=== PATIENT | male | born 1950 | race Caucasian/White ===

== ENCOUNTER 2022-12-27 02:28 | Emergency (ER) | payer OTHER ==
[~2022-12-27] VITALS: Ht 170.2 cm; Wt 76.2 kg
--- NOTE | 2022-12-27 02:40 | NUR ---
BIBPA FROM SNF FOR HYPERGLYCEMIA LAST BS 300+ PER EMS. PLACED ON BED COMFORTABLY. V/S TAKEN AND RECORDED.
--- NOTE | 2022-12-27 02:42 | NUR ---
BS 376
[2022-12-27] MEDS ORDERED: IV NS 0.9% 1,000 ML IV PRN ×2 (03:00)
[2022-12-27 03:02] LABS: BASOPHILS % (AUTO) 0.4 % (0.0-2.0); EOSINOPHILS % (AUTO) 2.6 % (0.0-6.0); HEMATOCRIT 45 % (39-51); HEMOGLOBIN 15.4 g/dL (13.5-17.5); LYMPHOCYTES # (AUTO) 1.6 K/uL (0.8-4.8); LYMPHOCYTES % (AUTO) 30.2 % (20.0-44.0); MEAN CORPUSCULAR HGB CONC 34 g/dl (31.0-36.0); MEAN CORPUSCULAR VOLUME 93 fL (80-96); MONOCYTES # (AUTO) 0.4 K/uL (0.1-1.30); MONOCYTES % (AUTO) 8.5 % (2.0-12.0); NEUTROPHILS % (AUTO) 58.3 % (43.0-81.0); PLATELET COUNT (AUTO) 184 K/uL (150-450); RED BLOOD CELL COUNT(AUTO) 4.89 MIL/uL (4.5-6.0); WHITE BLOOD COUNT (AUTO) 5.2 K/uL (4.3-11.0)
[2022-12-27 03:19] LABS: ABG BASE EXCESS 0.4 mmol/L; ABG PCO2 33.1 mmHg (35.0-45.0); ABG PH 7.468 (7.350-7.450); ABG PO2 80.1 mmHg (75.0-100.0); COHb 1.1 % (0.5-1.5); MetHb 0.2 % (0.0-1.5); O2Hb 95.5 % (94.0-97.0); SITE, ABG Right Radial; VENT MODE, BG ROOM AIR
[2022-12-27 03:33] LABS: CALCIUM, SERUM 9.3 mg/dL (8.5-10.1); CARBON DIOXIDE 30 mmol/L (21-32); CHLORIDE 100 mmol/L (98-107); CREATININE 1.1 mg/dL (0.6-1.3); POTASSIUM 3.6 mmol/L (3.5-5.1); SODIUM SERUM 135 mmol/L (136-145); UREA NITROGEN, BLOOD 10 mg/dL (7-18)
[2022-12-27 03:37] LABS: GLUCOSE 388 mg/dL (74-106)
--- NOTE | 2022-12-27 04:19 | NUR ---
URINE SPECIMEN SENT TO LAB
[2022-12-27] MEDS ORDERED: INSULIN REGULAR, HUMAN 100 UNIT/ML 10 ML VIAL IV ONE (04:30)
[2022-12-27] MEDS ORDERED: INSULIN REGULAR, HUMAN 100 UNIT/ML 10 ML VIAL ONE (04:55)
[2022-12-27 05:37] LABS: BILIRUBIN,URINE NEGATIVE (NEGATIVE); COLOR,URINE YELLOW (YELLOW); LEUKOCYTE ESTERASE ,URINE NEGATIVE (NEGATIVE); NITRITE, URINE NEGATIVE (NEGATIVE); PROTEIN,URINE NEGATIVE (NEGATIVE); UGLUCOSE 3+ mg/dL (NEGATIVE); UROBILINOGEN,URINE 0.2 EU/dL (0.2)
[2022-12-27 05:41] LABS: RBC,URINE 0-2 /HPF (0-2); WBC,URINE 0-2 /HPF (0-3)
[2022-12-27 05:42] LABS: BACTERIA,URINE Rare /HPF (None Seen); SQUAMOUS EPITHELIAL CELL,UR Few /HPF (None Seen)
--- NOTE | 2022-12-27 05:46 | NUR ---
BLOOD SUGAR 256 mg/dL
--- NOTE | 2022-12-27 06:09 | NUR ---
[facility] ETA :45 MIN
[2022-12-27 07:52] VITALS: BP 132/71
--- NOTE | 2022-12-27 07:52 | NUR ---
BS 234
--- NOTE | 2022-12-27 07:58 | NUR ---
Report given to Aram MCKEON at [facility].
--- NOTE | 2022-12-27 07:59 | NUR ---
Patient discharged to SNF in stable condition. Written and verbal after care instructions given. Patient verbalizes understanding of instruction. IV removed. Catheter intact and site benign. Pressure and 4x4 applied to site. No bleeding noted. pt picked by ambulance
== END 2022-12-27 08:09 ==
LOC: ER 02:33
DX: E11.65 Type 2 diabetes mellitus with hyperglycemia (principal)
CPT/HCPCS: 99283; 96374; 96361; 82803; 85025; 80048; 81001; 36415; 36600 ×2; 82962 ×3; J1815; J7030 ×2